=== PATIENT | female | born 2000 | race Caucasian/White ===

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

== ENCOUNTER → 2021-11-07 | Outpatient (CLI) | payer BC ==
[~2021-11-07] MED LIST: PROHANCE 279.3MG/ML 15ML VIAL As Ordered ONE
== END ==
LOC: M RAD 13:12
PROVIDERS: ATTEND Nurse Practitioner Family
DX: M54.16 Radiculopathy, lumbar region (principal)
CPT/HCPCS: 72158; A9576

== ENCOUNTER 2023-02-16 15:18 | Outpatient (CLI) | payer BC ==
[~2023-02-16] VITALS: Ht 167.6 cm; Wt 121.0 kg
[2023-02-16 15:41] VITALS: BP 92/60
[2023-02-16 15:47] VITALS: BP 117/72
[2023-02-16] MEDS ORDERED: ASPI81CH33 PO (16:22)
[2023-02-16] MEDS ORDERED: LABE300T55 PO (16:22)
[2023-02-16] MEDS ORDERED: PRENTAB9 PO (16:22)
[2023-02-16] MEDS ORDERED: HOME MED LIST COMPLETE! XX SCH (16:25)
[2023-02-16] MEDS: BETAMETHASONE SOLUSPAN 6MG/ML 5ML VIAL IM SCH (16:54)
[2023-02-16 18:04] VITALS: BP 124/69
[2023-02-16] MEDS ORDERED: ACETAMINOPHEN 500 MG TAB PO PRN (18:50)
[2023-02-16 18:51] LABS: LDH LACTATE DEHYDROGENASE 341 U/L (120-246)
[2023-02-16 18:52] LABS: ALT/SGPT 18 U/L (7.0-40); AST/SGOT 29 U/L (<34); BILIRUBIN,TOTAL 0.8 MG/DL (0.3-1.2); CREATININE FOR GFR 0.67 MG/DL (0.55-1.30); GLOMERULAR FILTRATION RATE > 60.0 (>60)
[2023-02-16 18:53] LABS: HEMOGLOBIN 12.4 g/dl (12.0-15.5); MEAN CORPUSCULAR HEMOGLOBIN 29.7 pg (27.0-33.0); MEAN CORPUSCULAR HGB CONC 32.6 g/dl (32.0-36.5); MEAN CORPUSCULAR VOLUME 91.1 fl (80.0-96.0); PLATELET COUNT, AUTOMATED 256 10^3/uL (150-450); RED BLOOD COUNT 4.17 10^6/uL (4.00-5.40); WHITE BLOOD COUNT 12.4 10^3/uL (4.0-10.0)
[2023-02-16 18:55] LABS: URIC ACID 4.1 MG/DL (3.1-7.8)
[2023-02-16 21:34] VITALS: BP 138/90
[2023-02-16] MEDS: LABETALOL 100MG TAB PO SCH (21:37)
[2023-02-17] VITALS (7 sets, daily range): BP systolic 114–127; BP diastolic 58–78
[2023-02-17] MEDS ORDERED: LACTATED RINGER'S 1000 ML IV STA (01:34)
[2023-02-17] MEDS: ceFAZolin SOD 2 GM in IV 1 EA IV SCH ×2 (02:00→09:04)
[2023-02-17] MEDS: LR 1,000 ML IV SCH ×2 (02:00→06:39)
[2023-02-17] MEDS: LABETALOL 100MG TAB PO SCH (09:04)
[2023-02-17] MEDS ORDERED: TERBUTALINE SULFATE 1 MG/ML 1ML VIAL SC STA ×2 (10:18→11:05)
[2023-02-17] MEDS: BETAMETHASONE SOLUSPAN 6MG/ML 5ML VIAL IM SCH (14:38)
== END 2023-02-17 16:30 | disposition other institution (70) ==
LOC: M LDO 15:18
PROVIDERS: ATTEND Specialist
DX: O60.03 Preterm labor without delivery, third trimester (principal); O30.043 Twin pregnancy, dichorionic/diamniotic, third trimester; Z98.870 Personal history of in utero procedure during pregnancy; O10.013 Pre-existing essential hypertension complicating pregnancy, third trimester; Z79.82 Long term (current) use of aspirin; Z3A.31 31 weeks gestation of pregnancy
CPT/HCPCS: 59025; 76812; 76820; 76821; 81001; 82247; 82565; 83615; 84450; 84460; 84550; 85027; 87081; 87086; 87635; 96360; 96361; 96372; 96374; G0463; J0690; J0702; J3105

== ENCOUNTER 2023-03-07 13:48 | Outpatient (CLI) | payer BC ==
[~2023-03-07] VITALS: Ht 167.6 cm; Wt 119.6 kg
[~2023-03-07 13:48] MED LIST changes: +ASPI81CH33 PO; +LABE300T55 PO; +PRENTAB9 PO; -PROHANCE 279.3MG/ML 15ML VIAL As Ordered ONE
[2023-03-07 14:07] VITALS: BP 156/71
[2023-03-07] MEDS ORDERED: ACET500P3 PO (14:10)
[2023-03-07] MEDS ORDERED: HOME MED LIST COMPLETE! XX SCH (14:15)
[2023-03-07 14:43] LABS: HEMATOCRIT 41.2 % (36.0-47.0); HEMOGLOBIN 13.6 g/dl (12.0-15.5); MEAN CORPUSCULAR HEMOGLOBIN 29.8 pg (27.0-33.0); MEAN CORPUSCULAR VOLUME 90.4 fl (80.0-96.0); PLATELET COUNT, AUTOMATED 237 10^3/uL (150-450); RED BLOOD COUNT 4.56 10^6/uL (4.00-5.40); WHITE BLOOD COUNT 11.4 10^3/uL (4.0-10.0)
[2023-03-07 14:56] VITALS: BP 144/81
[2023-03-07 14:56] LABS: TOTAL PROTEIN,RANDOM URINE 19.7 MG/DL (0.0-14.0)
[2023-03-07 15:01] LABS: CREATININE,RANDOM URINE 184.3 MG/DL
[2023-03-07 15:02] LABS: ALBUMIN 2.8 G/DL (3.2-5.2); ALKALINE PHOSPHATASE 181 U/L (46-116); ALT/SGPT 12 U/L (7.0-40); AST/SGOT 10 U/L (<34); BILIRUBIN,TOTAL 0.6 MG/DL (0.3-1.2); BLOOD UREA NITROGEN 8 MG/DL (9-23); CALCIUM LEVEL 9.5 MG/DL (8.5-10.1); CARBON DIOXIDE LEVEL 22 MMOL/L (20-31); CHLORIDE LEVEL 107 MMOL/L (98-107); CREATININE FOR GFR 0.72 MG/DL (0.55-1.30); GLOMERULAR FILTRATION RATE > 60.0 (>60); GLUCOSE, FASTING 69 MG/DL (60-100); POTASSIUM SERUM 4.4 MMOL/L (3.5-5.1); SODIUM LEVEL 137 MMOL/L (136-145); TOTAL PROTEIN 6.6 G/DL (5.7-8.2)
[2023-03-07 15:30] VITALS: BP 152/72
[2023-03-07 15:48] VITALS: BP 140/98
[2023-03-07 16:03] VITALS: BP 147/70
[2023-03-07 16:18] VITALS: BP 142/67
== END 2023-03-07 16:27 | disposition home or self-care (01) ==
LOC: M LDO 13:48
PROVIDERS: ATTEND Obstetrics & Gynecology
DX: O13.3 Gestational [pregnancy-induced] hypertension without significant proteinuria, third trimester (principal); O30.043 Twin pregnancy, dichorionic/diamniotic, third trimester; O36.8132 Decreased fetal movements, third trimester, fetus 2; Z98.870 Personal history of in utero procedure during pregnancy; Z3A.33 33 weeks gestation of pregnancy
CPT/HCPCS: 59025; 76815; 76819; 76820; 80053; 82570; 84156; 85027; G0463

== ENCOUNTER → 2023-05-09 | Outpatient (CLI) | payer BC ==
[~2023-05-09] MED LIST changes: +ACET-683 PO; +ACET500P3 PO; +IBUP80TA PO; +LABE20TAB PO
[2023-05-09 16:31] LABS: THYROID STIMULATING HORMONE 1.705 uIU/ML (0.55-4.78)
[2023-05-09 16:32] LABS: FREE T4 1.05 NG/DL (0.89-1.76)
== END ==
LOC: M PLALAB 13:45
PROVIDERS: ATTEND Specialist
DX: E03.9 Hypothyroidism, unspecified (principal)

== ENCOUNTER → 2023-06-21 | Outpatient (REF) | LOC: M EMP 09:52 | PROVIDERS: ATTEND Family Medicine | DX: Z11.52 Encounter for screening for COVID-19 (principal) ==

== ENCOUNTER → 2023-07-18 | Outpatient (CLI) | payer BC | LOC: M WHC 13:00 | PROVIDERS: ATTEND Specialist | DX: N83.202 Unspecified ovarian cyst, left side (principal); R93.89 Abnormal findings on diagnostic imaging of other specified body structures; N83.8 Other noninflammatory disorders of ovary, fallopian tube and broad ligament ==

== ENCOUNTER 2023-07-26 07:59 | Day surgery (SDC) | payer BC ==
[~2023-07-26] VITALS: Ht 167.6 cm; Wt 112.5 kg
[~2023-07-26 07:59] MED LIST changes: +LR 1,000 ML IV SCH
[2023-07-26 08:49] LABS: HEMATOCRIT 39.5 % (36.0-47.0); HEMOGLOBIN 12.9 g/dl (12.0-15.5); MEAN CORPUSCULAR HEMOGLOBIN 26.3 pg (27.0-33.0); MEAN CORPUSCULAR HGB CONC 32.7 g/dl (32.0-36.5); MEAN CORPUSCULAR VOLUME 80.6 fl (80.0-96.0); PLATELET COUNT, AUTOMATED 206 10^3/uL (150-450); WHITE BLOOD COUNT 4.8 10^3/uL (4.0-10.0)
[2023-07-26] MEDS ORDERED: fentaNYL 100 MCG/2 ML INJECTION As Ordered ONE (09:44)
[2023-07-26] MEDS ORDERED: ONDANSETRON 4MG 2ML VIAL As Ordered ONE (09:44)
[2023-07-26] MEDS ORDERED: propofoL 200 MG/20 ML VIAL As Ordered ONE (09:44)
[2023-07-26] MEDS ORDERED: ROCURONIUM BROMIDE 50MG/5ML VIAL As Ordered ONE (09:44)
[2023-07-26] MEDS ORDERED: LIDOCAINE 2% 100MG/5ML SDV (FOR ANES.) As Ordered ONE (09:44)
[2023-07-26] MEDS ORDERED: MIDAZOLAM INJ 2MG/2ML VIAL As Ordered ONE (09:45)
[2023-07-26] MEDS ORDERED: KETOROLAC 60MG 2ML VIAL As Ordered ONE (09:48)
[2023-07-26] MEDS ORDERED: SUGAMMADEX SODIUM 500 MG/5 ML VIAL (BRIDION) As Ordered ONE (09:48)
[2023-07-26] MEDS ORDERED: ACETAMINOPHEN 1000MG 100ML IV BAG As Ordered ONE (12:22)
[2023-07-26] MEDS ORDERED: ONDANSETRON 4MG 2ML VIAL IV PRN (13:05)
[2023-07-26] MEDS ORDERED: oxyCODONE 5MG TAB PO PRN (13:05)
[2023-07-26] MEDS ORDERED: HYDROMORPHONE HCL 0.5 MG/ 0.5 ML SYRINGE IV PRN (13:05)
[2023-07-26] MEDS ORDERED: LR 1,000 ML IV SCH (13:05)
[2023-07-26] MEDS ORDERED: METOCLOPRAMIDE INJ 10MG/2ML VIAL IV PRN (13:05)
[2023-07-26] MEDS ORDERED: MEPERIDINE 25 MG/ML 1ML VIAL IV PRN (13:05)
[2023-07-26] MEDS ORDERED: diphenhydrAMINE 50MG/ML VIAL IV PRN (13:05)
[2023-07-26] MEDS ORDERED: fentaNYL 100 MCG/2 ML INJECTION IV PRN (13:05)
[2023-07-26] MEDS ORDERED: IBUP-1022 PO (13:32)
[2023-07-26 15:40] VITALS: BP 142/81; TEMP 98.1; O2SAT 98
== END 2023-07-26 15:45 | disposition home or self-care (01) ==
LOC: M SDC 07:59
PROVIDERS: ATTEND Specialist
DX: N83.201 Unspecified ovarian cyst, right side (principal); N70.11 Chronic salpingitis; D27.1 Benign neoplasm of left ovary
CPT/HCPCS: 36415; 58661; 58662; 81025; 85027; 88305; J0131; J0665; J1100; J1200; J1885; J2250; J2405; J2765; J3010

== ENCOUNTER → 2024-02-27 | Outpatient (REF) ==
[~2024-02-27] MED LIST changes: +IBUP-1022 PO; +LABE300T28 PO; -LABE300T55 PO; -LR 1,000 ML IV SCH
== END ==
LOC: M EMP 09:24
PROVIDERS: ATTEND Family Medicine
DX: Z11.52 Encounter for screening for COVID-19 (principal)